=== PATIENT | female | born 1965 | race Caucasian/White ===

== ENCOUNTER 2016-05-07 09:41 | Emergency (ER) | payer OTHER ==
[2016-05-07 10:23] VITALS: BP 149/71
--- NOTE | 2016-05-07 11:23 | UC ---
Back Pain HPI - History of Current Complaint Chief Complaint: UCBackPain Stated Complaint: BACK PAIN-WC Time Seen by Provider: 05/07/16 11:13 Hx Obtained From: Patient Hx Last Menstrual Period: 03/23/16 Onset/Duration: Sudden Onset, Lasting Days Timing: Constant Severity Initially: Moderate Severity Currently: Moderate Back Pain: Is Discrete @ - at the left SI joint into the left buttock Character: Throbbing, Spasmodic Aggravating: Movement, Bending Alleviating: Rest, OTC Meds - has taken celebrex and aleve. Associated Signs And Symptoms: Negative: Weakness, Numbness, Tingling, Abdominal Pain, Bladder Incontinence, Bowel Incontinence Related History: Occupational Injury - Risk Factors AAA Risk Factors: Negative TAD Risk Factors: Negative Cauda Equina Risk Factors: Negative Epidural Abscess Risk Factors: Negative - Allergies/Home Medications Allergies/Adverse Reactions: Allergies Allergy/AdvReac Type Severity Reaction Status Date / Time Tramadol Allergy Abdominal Verified 05/07/16 10:24 Pain Home Medications: Home Medications Sertraline* [Zoloft*] 25 mg PO DAILY 05/07/16 [History Confirmed 05/07/16] PMH/Surg Hx/FS Hx/Imm Hx Previously Healthy: Yes Endocrine History Of: Denies: Diabetes, Thyroid Disease, Hyperthyroidism, Hypothyroidism, Dyslipidemia Cardiovascular History Of: Denies: Cardiac Disorders, Hypertension, Pacemaker/ICD, Myocardial Infarction , Congestive Heart Failure, Atrial Fibrillation, Deep Vein Thrombosis, Bleeding Disorders Respiratory History Of: Denies: COPD, Asthma, Bronchitis, Pneumonia, Pulmonary Embolism GI/ History Of: Denies: Gastroesophageal Reflux, Ulcer, Gastrointestinal Bleed, Gall Bladder Disease, Kidney Stones, Diverticulitis, Renal Disease, Urosepsis Neurological History Of: Denies: TIA, CVA, Dementia, Seizures, Migraine Psychological History Of: Reports: Anxiety - takes sertraline for anxiety Denies: Depression, Bipolar Disorder, Schizophrenia, Post Traumatic Stress Disorder Cancer History Of: Denies: Lung Cancer, Colorectal Cancer, Breast Cancer, Prostate Cancer, Cervical Cancer Other History Of: Negative For: HIV, Hepatitis B, Hepatitis C, Anticoagulant Therapy - Surgical History Surgical History: Yes Surgery Procedure, Year, and Place: 1986. 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 Lives: With Family Alcohol Use: None Substance Use Type: None Smoking Status (MU): Never Smoked Tobacco Type: Cigarettes Amount Used/How Often: rarely Household Exposure Type: Cigarettes - Immunization History Most Recent Influenza Vaccination: 12/2012 Review of Systems Constitutional: Negative Skin: Negative Eyes: Negative ENT: Negative Respiratory: Negative Cardiovascular: Negative Gastrointestinal: Negative Genitourinary: Negative Motor: Negative Neurovascular: Negative Musculoskeletal: Arthralgia, Myalgia Neurological: Negative Psychological: Anxious All Other Systems Reviewed And Are Negative: Yes Physical Exam Triage Information Reviewed: Yes Appearance: Well-Appearing, Pain Distress - moderate., Obese Vital Signs: Initial Vital Signs Temp 98.5 F 05/07/16 10:20 Pulse 64 05/07/16 10:20 Resp 16 05/07/16 10:20 BP 149/71 05/07/16 10:20 Pulse Ox 98 05/07/16 10:20 Vital Signs Reviewed: Yes Eye Exam: Normal ENT: Positive: Normal ENT inspection Dental Exam: Normal Neck: Positive: Supple, Nontender Respiratory: Positive: Lungs clear, Normal breath sounds Abdomen Description: Positive: Nontender, No Organomegaly Musculoskeletal: Positive: Strength Intact, No Edema - Hips with full rom, slow but not painful., ROM Limited @ - lumbar spine with paraspinal spasm; forward flexion limited to 40 degrees., Other: - Antalgic gait, moves slowly. Neurological: Positive: Alert, Muscle Tone Normal, Other: - SLR to 80 degrees bilaterally DTRs are 2+ and symmetrical, downgoing Babinski. Psychological Exam: Other - anxious Skin Exam: Normal Back Pain Course/Dx - Course Course Of Treatment: flexeril as it has helped in the past. advised to use one anti-inflammatory only and not to use additional nsaid's. refer to sports med. hydrocodone for short term pain. off work. - Differential Dx/Diagnosis Differential Diagnosis/HQI/PQRI: Cauda Equina Syndrome, Herniated Disc, Strain, Sprain Provider Diagnoses: SI joint instability and muscle strain lumbar spine. Discharge - Discharge Plan Condition: Stable Disposition: HOME Prescriptions: Cyclobenzaprine TAB* [Flexeril TAB*] 10 mg PO TID PRN #30 tab PRN Reason: Spasms Hydrocodone-Acetaminophen [Hydrocodone/Acetaminophen 5-325 mg] 1 tab PO Q6H PRN #15 tab MDD 8 PRN Reason: Pain celeCOXIB CAP* [CeleBREX CAP*] 200 mg PO BID #45 cap Patient Education Materials: Back Pain (ED) Forms: *Work Release Referrals: No Primary Care Phys,NOPCP [Primary Care Provider] - Kwesi Crenshaw [Medical Doctor] - Additional Instructions: Use celebrex 400mg daily to improve pain control. Use of this higher dose should be limited to 2 weeks. Use muscle relaxant as tolerated--it will be sedating. You can use heat to the low back and buttock area. Referral has been given to Sports Medicine. Off work this week.
[2016-05-07] MEDS ORDERED: Cyclobenzaprine TAB* 10 MG PO ONE ×2 (11:36→11:46)
[2016-05-07] MEDS ORDERED: HYDROcodone/ACETAMIN 5-325 MG* 1 TAB PO ONE ×2 (11:36→11:48)
== END 2016-05-07 12:22 | disposition home or self-care (01) ==
LOC: UCCORT 09:41
DX: M53.2X8 Spinal instabilities, sacral and sacrococcygeal region (principal); S39.012A Strain of muscle, fascia and tendon of lower back, initial encounter; X58.XXXA Exposure to other specified factors, initial encounter; Y93.9 Activity, unspecified; Y92.9 Unspecified place or not applicable; Y99.0 Civilian activity done for income or pay; R03.0 Elevated blood-pressure reading, without diagnosis of hypertension; Z88.5 Allergy status to narcotic agent; Z77.22 Contact with and (suspected) exposure to environmental tobacco smoke (acute) (chronic)
CPT/HCPCS: 99213; A9270-GY; G0463

== ENCOUNTER 2016-10-09 14:35 | Emergency (ER) | payer BC, OTHER ==
[2016-10-09 15:01] VITALS: BP 130/95
--- NOTE | 2016-10-09 16:10 | UC ---
Ming Patino Rebecca, scribed for Pravin Laguerre MD on 10/09/16 at 1524 . Abdominal Pain Female HPI - HPI Summary HPI Summary: Pt is a 51 y/o F who presents to [facility] c/o LUQ abdominal pain. Pain began in the LLQ 2 months ago and has been intermittent since onset, worsening 4 days ago. Pain is currently severe, ranked 10/10, characterized as cramping and "full." Sx aggravated by nothing, alleviated by laying on the front of her body and hydrocodone. C/o back pain in the R lumbar back with radiation down the posterior surface of the RLE with numbness/tingling. Additionally c/o breast swelling and tenderness, abdominal bloating, increased urinary frequency, constipation, decreased appetite and R foot drag secondary to numbness. Denies dysuria, fever, chills, diarrhea and neck pain. No recent back injuries, MVC or falls. Was seen by her PCP 4 days ago who scheduled an US for a week from today to r/o ovarian cyst. PSHx tubal ligation and appy. PMHx endometriosis and degenerative disc disease. No PMHX DM. - History of Current Complaint Chief Complaint: UCAbdominalPain Stated Complaint: RIGHT LEG PAIN,ABD PAIN/BLOATING,CRAMPS Time Seen by Provider: 10/09/16 15:07 Hx Obtained From: Patient Hx Last Menstrual Period: 08/05/16 Onset/Duration: Still Present, Worse Since - 4 days ago Severity Currently: Severe Pain Intensity: 10 Pain Scale Used: 0-10 Numeric Location: Discrete At: LLQ Radiates: Yes Radiates to: Back - R lumbar back and down the RLE Character: Cramping, Other - "full" Aggravating Factor(s): Nothing Alleviating Factor(s): Position - Laying on the abdomen, Medications - Hydrocodone, Other: Associated Signs and Symptoms: Positive: Back Pain - Back pain in the R lumbar back with radiation down the posterior surface of the RLE with numbness/ tingling., Constipation, Decreased Appetite, Other: - Increased urinary frequency, breast swelling and tenderness, abdominal bloating, constipation, and R foot dragging secondary to numbness. Denies dysuria, chills, and neck pain.. Negative: Fever, Diarrhea Allergies/Adverse Reactions: Allergies Allergy/AdvReac Type Severity Reaction Status Date / Time Tramadol Allergy Abdominal Verified 10/09/16 15:01 Pain PMH/Surg Hx/FS Hx/Imm Hx - Additional Past Medical History Additional PMH: Hx degenerative disc disease Previously Healthy: No GI/ History: Other Other GI/ History: Endometriosis Other History Of: Negative For: HIV, Hepatitis B, Hepatitis C, Anticoagulant Therapy - Surgical History Surgical History: Yes Surgery Procedure, Year, and Place: 1986. endometrial surgery 1998. tubal ligation. appy - Family History Known Family History: Positive: Cardiac Disease - Social History Alcohol Use: None Substance Use Type: None Smoking Status (MU): Never Smoked Tobacco Type: Cigarettes Amount Used/How Often: rarely Household Exposure Type: Cigarettes - Immunization History Most Recent Influenza Vaccination: 12/2012 Review of Systems Constitutional: Negative Skin: Negative Eyes: Negative ENT: Negative Respiratory: Negative Cardiovascular: Negative Gastrointestinal: Abdominal Pain - LLQ pain, Other - Abdominal bloating, constipation, decreased appetite Genitourinary: Frequency - Increased urinary frequency Motor: Negative Neurovascular: Negative Musculoskeletal: Other: - Back pain in the R lumbar back with radiation down the posterior surface of the RLE with numbness/tingling; breast swelling and tenderness Neurological: Numbness - RLE numbness/tingling; R foot dragging secondary to numbness Psychological: Negative All Other Systems Reviewed And Are Negative: Yes - Comments Additional Review of Systems Comments: Abdominal pain in the LLQ. Back pain in the R lumbar back with radiation down the posterior surface of the RLE with numbness/tingling. Breast swelling and tenderness, abdominal bloating, increased urinary frequency , constipation, decreased appetite and R foot dragging secondary to numbness. Denies dysuria, fever, chills, diarrhea and neck pain. Physical Exam Triage Information Reviewed: Yes Vital Signs: Initial Vital Signs Temp 98.9 F 10/09/16 14:53 Pulse 84 10/09/16 14:53 Resp 18 10/09/16 14:53 BP 130/95 10/09/16 14:53 Pulse Ox 99 10/09/16 14:53 Vital Signs Reviewed: Yes - Additional Comments The patient is well-nourished. The skin is warm and dry and skin color reflects adequate perfusion. HEENT: The head is normocephalic and atraumatic.The conjunctivae are clear and without drainage. Nares are patent and without drainage. Mouth reveals moist mucous membranes and the throat is without erythema and exudate. The external ears are intact. The ear canals are patent and without drainage. The tympanic membranes are intact. Neck is supple with full range of motion and non-tender. There are no carotid bruits. There is no neck vein distension. Respiratory: Chest is non-tender. Lungs are clear to auscultation and breath sounds are symmetrical and equal. Abdomen: The abdomen has tenderness in the L ovary. There are normal bowel sounds heard in all four quadrants and there is no organomegaly palpated. No CVA tenderness. Musculoskeletal: There is no back pain noted. Extremities are non-tender with full range of motion. There is good capillary refill. There is no peripheral edema or calf tenderness elicited. Neurological: Patient is alert and oriented to person, place and time. The patient has symmetrical motor strength in all four extremities. Cranial nerves are grossly intact. Deep tendon reflexes are symmetrical and equal in all four extremities. Tenderness over her sacral and right sciatic notch. No straight leg raising and no motor weakness. Good pulses throughout. Psychiatric: The patient has an appropriate affect and does not exhibit any anxiety or depression. Re-Evaluation - Re-Evaluation First Eval Re-Evaluation Time: 15:36 Change: Unchanged Comment: Discussed plan to transfer the pt and offered EMS transportation. She refuses, instead opting for private vehicle transportation. Abd Pain Female Course/Dx - Course Course Of Treatment: Pt is a 51 y/o F who presents to [facility] c/o severe LUQ for 2 months, worsening 4 days ago. Pain is characterized as cramping and "full." Sx alleviated by laying on the front of her body and hydrocodone. C/o back pain in the R lumbar back with radiation down the posterior surface of the RLE with numbness/tingling. Additionally c/o breast swelling and tenderness, abdominal bloating, increased urinary frequency, constipation, decreased appetite and R foot drag secondary to numbness. Denies dysuria, fever, chills, diarrhea and neck pain. No recent back injuries, MVC or falls. PSHx tubal ligation and appy. PMHx endometriosis and degenerative disc disease. There is no US available at [facility] at this time. Discussed care of pt with Milvia Alcaraz who accepts pt for transfer. Pt is option to be transported via private vehicle. She will sign out AMA with Dx of abdominal pain and right sciatica. She understands and agrees. - Differential Dx/Diagnosis Differential Diagnosis: Ovarian Cyst, , Other - hnp, ddd, sciatica Provider Diagnoses: Abdominal pain. Right sciatica - Physician Notification/Consults Discussed Care of Patient With: Milvia Alcaraz Time Discussed With Above Provider: 15:44 Instructed by Provider To: Other - Discussed and accepted the patient for abdominal pain and R sciatica. Discharge - Discharge Plan Condition: Good Disposition: AGAINST MEDICAL ADVICE Referrals: No Primary Care Phys,NOPCP [Medical Doctor] - The documentation as recorded by the Ming rico Rebecca accurately reflects the service I personally performed and the decisions made by me, Pravin Laguerre MD.
== END 2016-10-09 15:56 | disposition left against medical advice (07) ==
LOC: UCCORT 14:35
DX: R10.9 Unspecified abdominal pain (principal); M54.31 Sciatica, right side; N80.9 Endometriosis, unspecified; M51.36 Other intervertebral disc degeneration, lumbar region; Z88.5 Allergy status to narcotic agent
CPT/HCPCS: 81003; 84702; 99212; G0463